=== PATIENT | female | born 1970 | race Caucasian/White ===

== ENCOUNTER 2017-04-06 21:03 | Emergency (ER) | payer OTHER ==
[~2017-04-06] VITALS: Ht 170.2 cm; Wt 228.0 kg
[~2017-04-06 21:03] MED LIST: ATOR1TAB19 PO; AZO1CAP2 PO; COUM1TAB17 PO; COUM2.5T17 PO; D 50CAP PO; MULT1TAB8 PO; NICO21PAT TD; OMEP40CA2 PO; PAXI40TA10 PO; PERCOCET PO; SERO1TAB2 PO; VITA500T3 PO; ZITH250T PO
[2017-04-06 21:05] VITALS: BP 147/77
[2017-04-06] MEDS ORDERED: COUM7.5T PO (21:20)
[2017-04-06] MEDS ORDERED: TRAZ-136 PO (21:20)
[2017-04-06] MEDS ORDERED: NORCO, ANEXSIA 5/325MG TABLET (HYDROcodone/ACETAMINOPHEN) PO ONE (22:00)
[2017-04-06 22:08] LABS: INR 3.33
--- NOTE | 2017-04-06 22:40 | REPUSA ---
CLINICAL HISTORY: Neck pain. Fall. TECHNIQUE: Multiple axial images were obtained through the cervical spine. Images were also reconstru cted in coronal and sagittal planes. The study was performed without IV contrast. COMMENTS: There is no fracture or spondylolisthesis visualized. The paraspinal soft tissues are unremarkable. T here are no lytic or blastic lesions. Straightening of cervical lordosis is seen, suggesting muscular spasm. There is evidence of l multile daniel disk disease, demonstrated by osteophytosis and endplate sclerosis. Large anterior bridging ost eophytes are noted at C3-C4 through C5-C6. IMPRESSION: 1. No fracture or spondylolisthesis. 2. Straightening of cervical lordosis is seen, suggesting muscular spasm. 3. Multilevel spondylosis. Thank you for your kind referral of this patient.
--- NOTE | 2017-04-06 23:10 | REPUSA ---
CLINICAL HISTORY: Fall. TECHNIQUE: Multiple axial, coronal, sagittal CT images were obtained through the lumbar spine withou t IV contrast material. COMMENTS: A note is made of mild compression fracture deformity involving L5 vertebral body due to collapse of anterior aspect of superior end plate. The fracture appears to be acute to subacute with avulsion fr agment noted adjacent to anterior superior corner of the vertebral body. Mild multi-level degenerati ve spondylosis is seen. The paraspinal soft tissues are unremarkable. There are no lytic or blastic lesions. There is no si gnificant canal or foraminal stenosis noted at any level. The IVC filter is in place. There is a 6 mm calculus noted in the lower pole of the right kidney. T he patient is status post cholecystectomy. IMPRESSION: 1. Mild compression acute to subacute fracture deformity involving L5 vertebral body. 2. IVC filter is in place. 3. Calculus noted in the lower pole of the right kidney. 4. The patient is status post cholecystectomy.
[2017-04-06] MEDS ORDERED: NORCOTAB PO (23:21)
[2017-04-06] MEDS ORDERED: NORCO 5/325MG TABLET (BULK FOR ED) PO ONE (23:30)
--- NOTE | 2017-04-07 09:38 | REP ---
RIGHT KNEE SERIES, COMPLETE: 04/06/2017. Clinical history: Trauma, patient fell. Findings: No prior studies. The four views show tricompartment osteoarthritic changes with marginal osteophytes at medial and lateral compartments and larger at the patellofemoral joint. The sunrise view could not be performed likely due to those large patellar osteophytes. No gross suprapatellar effusion. Spurs in the tibial spines were noted. No gross loose body or osteochondral defect. No fracture or avulsion. Impression: 1. Advanced tricompartment osteoarthritis, most severe in the patellofemoral joint. No acute fracture, loose body, osteochondral defect or definite effusion. Signed by Max Otto MD 04/07/2017 07:49 P
== END 2017-04-07 00:14 | disposition home or self-care (01) ==
LOC: M ED 21:03
DX: S00.93XA Contusion of unspecified part of head, initial encounter (principal); S32.059A Unspecified fracture of fifth lumbar vertebra, initial encounter for closed fracture; M17.11 Unilateral primary osteoarthritis, right knee; N20.0 Calculus of kidney; D68.2 Hereditary deficiency of other clotting factors; F17.210 Nicotine dependence, cigarettes, uncomplicated; W01.0XXA Fall on same level from slipping, tripping and stumbling without subsequent striking against object, initial encounter; Y92.018 Other place in single-family (private) house as the place of occurrence of the external cause; Y99.9 Unspecified external cause status; Y93.9 Activity, unspecified; Z86.711 Personal history of pulmonary embolism; Z79.01 Long term (current) use of anticoagulants; Z79.899 Other long term (current) drug therapy